=== PATIENT | female | born 1955 | race Caucasian/White ===

== ENCOUNTER 2017-06-04 17:35 | Inpatient (IN) | payer OTHER ==
[~2017-06-04] VITALS: Ht 149.9 cm; Wt 93.0 kg
[2017-06-04 18:00] VITALS: BP_SYST 112
[2017-06-04] MEDS ORDERED: KETOROLAC TROMETHAMINE 60 MG/2 ML VIAL IM ONE (18:30)
[2017-06-04] MEDS ORDERED: HYDROcodone/ACETAMIN 7.5-325 MG TAB PO ONE (21:15)
[2017-06-04 22:02] LABS: BASOPHILS % (AUTO) 0.5 % (0.0-2.0); EOSINOPHILS # (AUTO) 0.1 K/uL (0.0-0.4); EOSINOPHILS % (AUTO) 1.7 % (0.0-4.0); HEMATOCRIT 36.6 % (36-48); HEMOGLOBIN 12.4 g/dL (12.0-16.0); LYMPHOCYTES # (AUTO) 2.1 K/uL (1.0-5.5); LYMPHOCYTES % (AUTO) 28.5 % (20.5-51.5); MEAN CORPUSCULAR HEMOGLOBIN 31 pg (27-31); MEAN CORPUSCULAR HGB CONC 34 % (32-36); MEAN CORPUSCULAR VOLUME 91 fL (79.0-98.0); MONOCYTES # (AUTO) 0.9 K/uL (0.0-1.0); MONOCYTES % (AUTO) 11.9 % (1.7-9.3); NEUTROPHILS # (AUTO) 4.2 K/uL (1.8-7.7); NEUTROPHILS % (AUTO) 57.4 % (40.0-70.0); PLATELET COUNT (AUTO) 251 K/uL (130-430); RED BLOOD CELL COUNT(AUTO) 4.03 MIL/uL (4.2-6.2); RED CELL DISTRIBUTION WIDTH 13.4 % (9.0-15.0); WHITE BLOOD COUNT (AUTO) 7.3 K/uL (4.8-10.8)
[2017-06-04] MEDS ORDERED: DEXTROSE 50% JECT 50 ML DISP.SYRIN IVP PRN (22:15)
[2017-06-04] MEDS ORDERED: MORPHINE 2 MG/ML INJ. SYRINGE IVP PRN (22:15)
[2017-06-04] MEDS ORDERED: ONDANSETRON HCL 4 MG/2 ML VIAL IVP PRN (22:15)
[2017-06-04] MEDS ORDERED: MAGNESIUM SULFATE 50 ML IV PRN (22:15)
[2017-06-04] MEDS ORDERED: ZOLPIDEM TARTRATE 5 MG TABLET PO PRN (22:15)
[2017-06-04] MEDS ORDERED: POTASSIUM CHLORIDE 10 MEQ TAB.PRT.SR PO PRN (22:15)
[2017-06-04] MEDS ORDERED: DOCUSATE SODIUM 100 MG CAPSULE PO PRN (22:15)
[2017-06-04] MEDS ORDERED: ACETAMINOPHEN 325 MG TABLET PO PRN (22:15)
[2017-06-04] MEDS ORDERED: OXYC20TA55 PO (22:17)
[2017-06-04] MEDS ORDERED: LEVE250T2 PO (22:17)
[2017-06-04] MEDS ORDERED: LORA-258 PO (22:17)
[2017-06-04] MEDS ORDERED: VITA-285 PO (22:17)
[2017-06-04] MEDS ORDERED: LIP40 PO (22:17)
[2017-06-04] MEDS ORDERED: METO25TA6 PO (22:17)
[2017-06-04] MEDS ORDERED: POTA20TA83 PO (22:17)
[2017-06-04] MEDS ORDERED: RANI-281 PO (22:17)
[2017-06-04] MEDS ORDERED: LISI-600 PO (22:17)
[2017-06-04] MEDS ORDERED: METF-509 PO (22:17)
[2017-06-04] MEDS ORDERED: LACO100T2 PO (22:17)
[2017-06-04] MEDS ORDERED: FURO-150 PO (22:17)
[2017-06-04] MEDS ORDERED: OXYC5TAB84 PO (22:17)
[2017-06-04] MEDS ORDERED: GABA800T PO (22:17)
[2017-06-04] MEDS ORDERED: GABA-531 PO (22:17)
[2017-06-04] MEDS ORDERED: TICA90TA PO (22:17)
[2017-06-04 22:19] LABS: BILIRUBIN,URINE 1+ (NEGATIVE); CLARITY/URINE CLOUDY (CLEAR); COLOR,URINE YELLOW (YELLOW); GLUCOSE,URINE NEGATIVE (NEGATIVE); KETONES,URINE TRACE (NEGATIVE); LEUKOCYTE ESTERASE ,URINE 1+ (NEGATIVE); NITRITE, URINE POSITIVE (NEGATIVE); PROTEIN URINE TRACE (NEGATIVE); UROBILINOGEN,URINE 0.2 (0.2-1.0)
[2017-06-04 22:21] LABS: BLOOD, URINE TRACE (NEGATIVE)
[2017-06-04 22:42] LABS: BACTERIA,URINE MANY /HPF (None Seen); RBC,URINE NONE SEEN /HPF (0-3)
[2017-06-04 22:43] LABS: MUCUS,URINE None Seen /LPF (None Seen)
[2017-06-04 23:10] VITALS: BP_SYST 99
[2017-06-04 23:21] LABS: CALCIUM 9.1 mg/dL (8.4-11.0); CREATININE 1.02 mg/dL (0.55-1.30); POTASSIUM 4.3 mmol/L (3.5-5.1)
[2017-06-04 23:26] LABS: ALBUMIN 3.8 g/dL (3.4-4.8); TOTAL BILIRUBIN 0.4 mg/dL (0.0-1.0); TOTAL PROTEIN, SERUM 7.6 g/dL (6.4-8.3)
[2017-06-05 04:00] VITALS: BP_SYST 121
[2017-06-05] MEDS: INSULIN ASPART 100 UNITS/ML, 10 ML VIAL (NovoLOG) SUBCUT PRN ×3 (06:24→17:12)
[2017-06-05 07:23] LABS: BASOPHILS % (AUTO) 0.5 % (0.0-2.0); EOSINOPHILS # (AUTO) 0.2 K/uL (0.0-0.4); EOSINOPHILS % (AUTO) 1.9 % (0.0-4.0); HEMATOCRIT 32.4 % (36-48); HEMOGLOBIN 10.8 g/dL (12.0-16.0); LYMPHOCYTES # (AUTO) 1.3 K/uL (1.0-5.5); LYMPHOCYTES % (AUTO) 16.4 % (20.5-51.5); MEAN CORPUSCULAR HEMOGLOBIN 30 pg (27-31); MEAN CORPUSCULAR HGB CONC 33 % (32-36); MEAN CORPUSCULAR VOLUME 91 fL (79.0-98.0); MONOCYTES # (AUTO) 0.8 K/uL (0.0-1.0); MONOCYTES % (AUTO) 10.4 % (1.7-9.3); NEUTROPHILS # (AUTO) 5.8 K/uL (1.8-7.7); NEUTROPHILS % (AUTO) 70.8 % (40.0-70.0); PLATELET COUNT (AUTO) 212 K/uL (130-430); RED BLOOD CELL COUNT(AUTO) 3.55 MIL/uL (4.2-6.2); RED CELL DISTRIBUTION WIDTH 13.4 % (9.0-15.0); WHITE BLOOD COUNT (AUTO) 8.1 K/uL (4.8-10.8)
[2017-06-05 07:29] LABS: CALCIUM 8.7 mg/dL (8.4-11.0); CREATININE 1.19 mg/dL (0.55-1.30); POTASSIUM 4.3 mmol/L (3.5-5.1)
[2017-06-05 08:18] VITALS: BP_SYST 98
[2017-06-05] MEDS ORDERED: LISINOPRIL 10 MG TABLET (PRINIVIL) PO SCH (09:00)
[2017-06-05] MEDS: GABAPENTIN 300 MG CAPSULE PO SCH ×3 (09:11→21:00)
[2017-06-05] MEDS: LACOSAMIDE 100 MG TABLET PO SCH ×2 (09:11→21:00)
[2017-06-05] MEDS: levETIRAcetam 500 MG TABLET PO SCH ×2 (09:11→21:00)
[2017-06-05] MEDS: HEPARIN SODIUM,PORCINE 5000 UNITS/ML VIAL SUBCUT SCH ×2 (09:14→22:56)
[2017-06-05] MEDS: NACL 0.9% 1,000 ML IV SCH ×2 (11:19→22:00)
[2017-06-05] MEDS: cefTRIAXone 1 GM in D5W 50 ML IV SCH (11:26)
[2017-06-05 12:10] VITALS: BP_SYST 105
[2017-06-05] MEDS: oxyCODONE HCL 10 MG TAB.ER.12H PO SCH ×2 (14:17→22:00)
[2017-06-05 16:16] VITALS: BP_SYST 139
[2017-06-05] MEDS: metFORMIN HCL 500 MG TABLET PO SCH (17:11)
[2017-06-05 20:00] VITALS: BP_SYST 116
[2017-06-05] MEDS ORDERED: MENTHOL/ZINC OXIDE 113 GM OINT. TP PRN (20:30)
[2017-06-05] MEDS: MENTHOL/ZINC OXIDE 113 GM OINT. TP SCH (21:00)
[2017-06-05] MEDS ORDERED: GABAPENTIN 300 MG CAPSULE PO SCH (21:00)
[2017-06-05] MEDS: ATORVASTATIN 20 MG TABLET PO SCH (21:00)
[2017-06-05] MEDS: LORazepam 2 MG/ML VIAL IVP PRN (22:54)
[2017-06-06 00:12] VITALS: BP_SYST 103
[2017-06-06 04:00] VITALS: BP_SYST 110
[2017-06-06] MEDS: NACL 0.9% 1,000 ML IV SCH (05:00)
[2017-06-06] MEDS: oxyCODONE HCL 10 MG TAB.ER.12H PO SCH ×3 (06:00→22:16)
[2017-06-06 06:50] LABS: BASOPHILS % (AUTO) 0.4 % (0.0-2.0); EOSINOPHILS # (AUTO) 0.1 K/uL (0.0-0.4); HEMATOCRIT 31.2 % (36-48); HEMOGLOBIN 10.3 g/dL (12.0-16.0); LYMPHOCYTES # (AUTO) 1.7 K/uL (1.0-5.5); LYMPHOCYTES % (AUTO) 34.1 % (20.5-51.5); MEAN CORPUSCULAR HEMOGLOBIN 30 pg (27-31); MEAN CORPUSCULAR HGB CONC 33 % (32-36); MEAN CORPUSCULAR VOLUME 92 fL (79.0-98.0); MONOCYTES # (AUTO) 0.7 K/uL (0.0-1.0); MONOCYTES % (AUTO) 14.5 % (1.7-9.3); NEUTROPHILS # (AUTO) 2.4 K/uL (1.8-7.7); PLATELET COUNT (AUTO) 187 K/uL (130-430); RED BLOOD CELL COUNT(AUTO) 3.41 MIL/uL (4.2-6.2); RED CELL DISTRIBUTION WIDTH 13.4 % (9.0-15.0); WHITE BLOOD COUNT (AUTO) 4.9 K/uL (4.8-10.8)
[2017-06-06 06:53] LABS: CALCIUM 8.3 mg/dL (8.4-11.0); CREATININE 0.83 mg/dL (0.55-1.30); POTASSIUM 4.3 mmol/L (3.5-5.1)
[2017-06-06 08:26] VITALS: BP_SYST 127
[2017-06-06] MEDS: MENTHOL/ZINC OXIDE 113 GM OINT. TP SCH ×4 (09:00→20:50)
[2017-06-06] MEDS: cefTRIAXone 1 GM in D5W 50 ML IV SCH (09:10)
[2017-06-06] MEDS: LACOSAMIDE 100 MG TABLET PO SCH ×2 (09:49→20:49)
[2017-06-06] MEDS: levETIRAcetam 500 MG TABLET PO SCH ×2 (09:49→20:50)
[2017-06-06] MEDS: metFORMIN HCL 500 MG TABLET PO SCH ×2 (09:50→18:11)
[2017-06-06] MEDS: GABAPENTIN 300 MG CAPSULE PO SCH ×3 (09:50→20:49)
[2017-06-06] MEDS: POTASSIUM CHLORIDE 20 MEQ TAB.PRT.SR PO SCH (09:51)
[2017-06-06] MEDS: HEPARIN SODIUM,PORCINE 5000 UNITS/ML VIAL SUBCUT SCH ×2 (09:53→20:48)
[2017-06-06] MEDS: FUROSEMIDE 20 MG TABLET PO SCH (09:54)
[2017-06-06] MEDS: LORazepam 2 MG/ML VIAL IVP PRN ×2 (10:28→20:59)
[2017-06-06] MEDS: INSULIN ASPART 100 UNITS/ML, 10 ML VIAL (NovoLOG) SUBCUT PRN ×2 (12:16→21:01)
[2017-06-06 12:50] VITALS: BP_SYST 118
[2017-06-06 17:37] VITALS: BP_SYST 131; BP_SYST 135
[2017-06-06 19:30] VITALS: BP_SYST 108
[2017-06-06] MEDS: ATORVASTATIN 20 MG TABLET PO SCH (20:49)
[2017-06-06] MEDS ORDERED: CITALOPRAM HYDROBROMIDE 20 MG TABLET PO SCH (21:00)
[2017-06-06] MEDS ORDERED: ESCITALOPRAM OXALATE 10 MG TABLET PO SCH (21:00)
[2017-06-07] VITALS: BP_SYST 120
[2017-06-07 04:00] VITALS: BP_SYST 128
[2017-06-07] MEDS: oxyCODONE HCL 10 MG TAB.ER.12H PO SCH ×2 (06:52→14:38)
[2017-06-07 07:18] LABS: BASOPHILS % (AUTO) 0.6 % (0.0-2.0); EOSINOPHILS # (AUTO) 0.2 K/uL (0.0-0.4); EOSINOPHILS % (AUTO) 2.2 % (0.0-4.0); HEMATOCRIT 34.3 % (36-48); HEMOGLOBIN 11.6 g/dL (12.0-16.0); LYMPHOCYTES # (AUTO) 1.9 K/uL (1.0-5.5); LYMPHOCYTES % (AUTO) 22.8 % (20.5-51.5); MEAN CORPUSCULAR HEMOGLOBIN 31 pg (27-31); MEAN CORPUSCULAR HGB CONC 34 % (32-36); MEAN CORPUSCULAR VOLUME 92 fL (79.0-98.0); MONOCYTES # (AUTO) 0.8 K/uL (0.0-1.0); MONOCYTES % (AUTO) 10.1 % (1.7-9.3); NEUTROPHILS # (AUTO) 5.2 K/uL (1.8-7.7); NEUTROPHILS % (AUTO) 64.3 % (40.0-70.0); PLATELET COUNT (AUTO) 220 K/uL (130-430); RED BLOOD CELL COUNT(AUTO) 3.72 MIL/uL (4.2-6.2); RED CELL DISTRIBUTION WIDTH 13.5 % (9.0-15.0); WHITE BLOOD COUNT (AUTO) 8.1 K/uL (4.8-10.8)
[2017-06-07 07:44] LABS: CALCIUM 8.8 mg/dL (8.4-11.0); CREATININE 0.83 mg/dL (0.55-1.30); POTASSIUM 4.7 mmol/L (3.5-5.1)
[2017-06-07 08:09] VITALS: BP_SYST 135
[2017-06-07] MEDS: GABAPENTIN 300 MG CAPSULE PO SCH ×2 (08:58→14:38)
[2017-06-07] MEDS: metFORMIN HCL 500 MG TABLET PO SCH ×2 (08:58→17:51)
[2017-06-07] MEDS: POTASSIUM CHLORIDE 20 MEQ TAB.PRT.SR PO SCH (08:59)
[2017-06-07] MEDS: levETIRAcetam 500 MG TABLET PO SCH (08:59)
[2017-06-07] MEDS: FUROSEMIDE 20 MG TABLET PO SCH (08:59)
[2017-06-07] MEDS: LACOSAMIDE 100 MG TABLET PO SCH (08:59)
[2017-06-07] MEDS: NACL 0.9% 1,000 ML IV SCH ×2 (09:00→11:52)
[2017-06-07] MEDS: HEPARIN SODIUM,PORCINE 5000 UNITS/ML VIAL SUBCUT SCH (09:03)
[2017-06-07] MEDS: MENTHOL/ZINC OXIDE 113 GM OINT. TP SCH ×3 (09:04→17:51)
[2017-06-07] MEDS: LORazepam 2 MG/ML VIAL IVP PRN ×2 (09:04→14:40)
[2017-06-07] MEDS: cefTRIAXone 1 GM in D5W 50 ML IV SCH (09:44)
[2017-06-07] MEDS: INSULIN ASPART 100 UNITS/ML, 10 ML VIAL (NovoLOG) SUBCUT PRN (11:55)
[2017-06-07 12:43] VITALS: BP_SYST 131
[2017-06-07 16:27] VITALS: BP_SYST 109
[2017-06-07 17:19] VITALS: BP_SYST 109
== END 2017-06-07 18:00 | DRG 690 ==
LOC: SED 17:35 → SMU 22:38
PROVIDERS: ADMIT General Practice; ATTEND General Practice
DX: N39.0 Urinary tract infection, site not specified (principal); F33.2 Major depressive disorder, recurrent severe without psychotic features; Z68.41 Body mass index [BMI] 40.0-44.9, adult; I69.354 Hemiplegia and hemiparesis following cerebral infarction affecting left non-dominant side; E66.9 Obesity, unspecified; E78.5 Hyperlipidemia, unspecified; I25.10 Atherosclerotic heart disease of native coronary artery without angina pectoris; E11.40 Type 2 diabetes mellitus with diabetic neuropathy, unspecified; E11.65 Type 2 diabetes mellitus with hyperglycemia; F41.9 Anxiety disorder, unspecified; F48.2 Pseudobulbar affect; G40.909 Epilepsy, unspecified, not intractable, without status epilepticus; I10 Essential (primary) hypertension; W19.XXXA Unspecified fall, initial encounter; Y93.89 Activity, other specified; Y92.89 Other specified places as the place of occurrence of the external cause; Y99.8 Other external cause status; Z79.84 Long term (current) use of oral hypoglycemic drugs
CPT/HCPCS: 36415; 71010; 72128; 80048; 80053; 81000-TC; 82962; 83036; 83735-TC; 85025; 87086; 87186-TC; 96372; 97530-GP; 99285; J0696; J1644; J1815; J1885; J2060; J2270; J7030; J7060

== ENCOUNTER 2017-08-23 03:11 | Inpatient (IN) | payer OTHER, MEDICAID ==
[~2017-08-23] VITALS: Ht 149.9 cm; Wt 83.9 kg
[2017-08-23 03:11] VITALS: BP_SYST 192
[~2017-08-23 03:11] MED LIST: FURO-150 PO; GABA-531 PO; GABA800T PO; LACO100T2 PO; LEVE250T2 PO; LIP40 PO; LISI-600 PO; LORA-258 PO; METF-509 PO; METO25TA6 PO; OXYC20TA55 PO; OXYC5TAB84 PO; POTA20TA83 PO; TICA90TA PO; VITA-285 PO
[2017-08-23] MEDS ORDERED: NACL 0.9% 1,000 ML IV ONE ×2 (03:23→04:15)
[2017-08-23] MEDS ORDERED: ONDANSETRON HCL 4 MG/2 ML VIAL IVP ONE (03:30)
[2017-08-23] MEDS ORDERED: INSULIN REGULAR, HUMAN 10 UNITS/0.1 ML INJ IVP ONE (03:30)
[2017-08-23 03:53] LABS: WHITE BLOOD COUNT (AUTO) 13.3 K/uL (4.8-10.8)
[2017-08-23 03:54] LABS: BASOPHILS % (AUTO) 3.3 % (0.0-2.0); EOSINOPHILS % (AUTO) 0.1 % (0.0-4.0); HEMATOCRIT 47.3 % (36-48); HEMOGLOBIN 16.1 g/dL (12.0-16.0); LYMPHOCYTES # (AUTO) 1.1 K/uL (1.0-5.5); MEAN CORPUSCULAR HEMOGLOBIN 30 pg (27-31); MEAN CORPUSCULAR HGB CONC 34 % (32-36); MEAN CORPUSCULAR VOLUME 87 fL (79.0-98.0); MONOCYTES % (AUTO) 3.1 % (1.7-9.3); NEUTROPHILS # (AUTO) 11.4 K/uL (1.8-7.7); NEUTROPHILS % (AUTO) 85.5 % (40.0-70.0); PLATELET COUNT (AUTO) 266 K/uL (130-430); RED BLOOD CELL COUNT(AUTO) 5.42 MIL/uL (4.2-6.2); RED CELL DISTRIBUTION WIDTH 12.7 % (9.0-15.0)
[2017-08-23 03:55] LABS: BASOPHILS # (AUTO) 0.4 K/uL (0.0-0.2); MONOCYTES # (AUTO) 0.4 K/uL (0.0-1.0)
[2017-08-23 03:59] LABS: CALCIUM 10.5 mg/dL (8.4-11.0); CREATININE 0.84 mg/dL (0.55-1.30); POTASSIUM 3.8 mmol/L (3.5-5.1)
[2017-08-23 04:00] LABS: INR 1.1 (0.8-1.2)
[2017-08-23] MEDS ORDERED: MORPHINE 4 MG/ML INJ. SYRINGE IVP ONE ×2 (04:00→06:00)
[2017-08-23 04:05] LABS: ALBUMIN 4.6 g/dL (3.4-4.8); TOTAL BILIRUBIN 0.7 mg/dL (0.0-1.0)
[2017-08-23 04:22] LABS: BILIRUBIN,URINE NEGATIVE (NEGATIVE); BLOOD, URINE 1+ (NEGATIVE); CLARITY/URINE CLEAR (CLEAR); COLOR,URINE YELLOW (YELLOW); GLUCOSE,URINE 3+ (NEGATIVE); KETONES,URINE 3+ (NEGATIVE); LEUKOCYTE ESTERASE ,URINE NEGATIVE (NEGATIVE); NITRITE, URINE NEGATIVE (NEGATIVE); PROTEIN URINE 3+ (NEGATIVE); UROBILINOGEN,URINE 0.2 (0.2-1.0)
[2017-08-23 04:27] LABS: BACTERIA,URINE FEW /HPF (None Seen); URINE AMORPHOUS URATE 1+ /HPF (None Seen); WBC,URINE 0-3 /HPF (0-3); YEAST,URINE Few /HPF (None Seen)
[2017-08-23] MEDS ORDERED: IOHEXOL 100 ML IV ONE (04:29)
[2017-08-23] MEDS ORDERED: MULT PO (05:02)
[2017-08-23] MEDS ORDERED: LORA-258 PO (05:02)
[2017-08-23] MEDS ORDERED: OMEP20CA10 PO (05:02)
[2017-08-23] MEDS ORDERED: HYDR-1189 PO (05:02)
[2017-08-23] MEDS ORDERED: CEL20 PO (05:02)
[2017-08-23] MEDS ORDERED: ASCO500T20 PO (05:02)
[2017-08-23] MEDS ORDERED: HEPA500014 SUBCUT (05:02)
[2017-08-23] MEDS ORDERED: MECL12.584 PO (05:02)
[2017-08-23] MEDS ORDERED: niCARdipine 25 MG in D5W 240 ML IV PRN (05:45)
[2017-08-23] MEDS ORDERED: INSULIN REGULAR, HUMAN 100 UNITS/ML, 10 ML VIAL (novoLIN R) SUBCUT PRN (05:45)
[2017-08-23] MEDS ORDERED: hydrALAZINE HCL 20 MG/ML VIAL IVP PRN (05:45)
[2017-08-23] MEDS ORDERED: niCARdipine 2.5 MG/ML, 10 ML VIAL (CARDENE) IV ONE (05:55)
[2017-08-23] MEDS ORDERED: NACL 0.9% 1,000 ML IV SCH (06:00)
[2017-08-23 06:32] VITALS: BP_SYST 175
[2017-08-23 08:15] VITALS: BP_SYST 174
[2017-08-23] MEDS: hydrALAZINE HCL 20 MG/ML VIAL ONE ×2 (08:24→10:41)
[2017-08-23] MEDS ORDERED: DEXTROSE 50% JECT 50 ML DISP.SYRIN IVP PRN (08:30)
[2017-08-23 09:17] LABS: CREATININE 0.73 mg/dL (0.55-1.30); POTASSIUM 3.6 mmol/L (3.5-5.1)
[2017-08-23] MEDS ORDERED: BISACODYL 10 MG/SUPPOSITORY RC PRN (10:15)
[2017-08-23] MEDS ORDERED: POTASSIUM CHLORIDE 20 MEQ TAB.PRT.SR PO PRN (10:15)
[2017-08-23] MEDS ORDERED: ZOLPIDEM TARTRATE 5 MG TABLET PO PRN (10:15)
[2017-08-23] MEDS ORDERED: SIMETHICONE 80 MG TAB.CHEW PO PRN (10:15)
[2017-08-23] MEDS ORDERED: ACETAMINOPHEN 325 MG TABLET PO PRN (10:15)
[2017-08-23] MEDS ORDERED: oxyCODONE HCL 5 MG TABLET PO PRN (10:15)
[2017-08-23] MEDS: INSULIN REGULAR, HUMAN 100 UNITS/ML, 10 ML VIAL (novoLIN R) SUBCUT PRN ×3 (10:55→22:05)
[2017-08-23] MEDS: NACL 0.9% 1,000 ML IV SCH (10:56)
[2017-08-23] MEDS ORDERED: METOPROLOL TARTRATE 25 MG TABLET ONE (10:56)
[2017-08-23] MEDS: MORPHINE 2 MG/ML INJ. SYRINGE IVP PRN (10:57)
[2017-08-23] MEDS: LORazepam 2 MG/ML VIAL IVP PRN (10:57)
[2017-08-23] MEDS ORDERED: METOPROLOL TARTRATE 25 MG TABLET PO ONE (11:00)
[2017-08-23] MEDS ORDERED: MILK OF MAGNESIA 30 ML UDC PO ONE (11:00)
[2017-08-23] MEDS ORDERED: LISINOPRIL 20 MG TABLET PO ONE (11:00)
[2017-08-23] MEDS ORDERED: MILK OF MAGNESIA 30 ML UDC PO PRN (11:00)
[2017-08-23] MEDS: METOPROLOL TARTRATE 25 MG TABLET PO SCH ×2 (11:01→22:03)
[2017-08-23] MEDS: LISINOPRIL 20 MG TABLET PO SCH (11:02)
[2017-08-23 11:26] LABS: FREE T4 (FREE THYROXINE) 0.8 ng/dL (0.6-1.6); PHOSPHORUS 2.7 mg/dL (2.7-4.5); THYROID STIMULATING HORMONE 0.75 uIu/mL (0.34-4.82)
[2017-08-23 11:52] VITALS: BP_SYST 151
[2017-08-23] MEDS: FLUCONAZOLE 100 mg/ NS 50 ML IV SCH (11:56)
[2017-08-23] MEDS: cefTRIAXone 1 GM in D5W 50 ML IV SCH (13:01)
[2017-08-23] MEDS: oxyCODONE HCL 10 MG TAB.ER.12H PO SCH ×2 (16:27→22:02)
[2017-08-23] MEDS: LACTULOSE 20 GM/30 ML UDC PO SCH ×2 (16:28→22:02)
[2017-08-23 16:51] VITALS: BP_SYST 153
[2017-08-23] MEDS: CITALOPRAM HYDROBROMIDE 20 MG TABLET PO SCH (18:12)
[2017-08-23 20:00] VITALS: BP_SYST 138
[2017-08-23] MEDS ORDERED: NON-FORMULARY MEDICATION (Metformin Hcl (Metformin Hcl Er) 500 MG) PO SCH (21:00)
[2017-08-23] MEDS: HEPARIN SODIUM,PORCINE 5000 UNITS/ML VIAL SUBCUT SCH (22:01)
[2017-08-23] MEDS: GABAPENTIN 300 MG CAPSULE PO SCH (22:02)
[2017-08-23] MEDS: ATORVASTATIN 20 MG TABLET PO SCH (22:02)
[2017-08-23] MEDS: DOCUSATE SODIUM 100 MG CAPSULE PO SCH (22:02)
[2017-08-23] MEDS: levETIRAcetam 500 MG TABLET PO SCH (22:02)
[2017-08-23] MEDS: LACOSAMIDE 100 MG TABLET PO SCH (22:03)
[2017-08-24 01:05] VITALS: BP_SYST 131
[2017-08-24 04:48] VITALS: BP_SYST 108
[2017-08-24] MEDS: INSULIN REGULAR, HUMAN 100 UNITS/ML, 10 ML VIAL (novoLIN R) SUBCUT PRN ×4 (06:33→22:29)
[2017-08-24] MEDS: NACL 0.9% 1,000 ML IV SCH (06:35)
[2017-08-24] MEDS ORDERED: MAGNESIUM CITRATE 300 ML ORAL SOLUTION PO ONE (07:00)
[2017-08-24 07:14] LABS: BASOPHILS # (AUTO) 0.1 K/uL (0.0-0.2); BASOPHILS % (AUTO) 0.4 % (0.0-2.0); EOSINOPHILS % (AUTO) 0.1 % (0.0-4.0); HEMATOCRIT 44.1 % (36-48); HEMOGLOBIN 14.3 g/dL (12.0-16.0); LYMPHOCYTES # (AUTO) 1.8 K/uL (1.0-5.5); LYMPHOCYTES % (AUTO) 11.4 % (20.5-51.5); MEAN CORPUSCULAR HEMOGLOBIN 29 pg (27-31); MEAN CORPUSCULAR HGB CONC 33 % (32-36); MEAN CORPUSCULAR VOLUME 88 fL (79.0-98.0); MONOCYTES # (AUTO) 1.9 K/uL (0.0-1.0); MONOCYTES % (AUTO) 11.9 % (1.7-9.3); NEUTROPHILS # (AUTO) 11.8 K/uL (1.8-7.7); NEUTROPHILS % (AUTO) 76.2 % (40.0-70.0); PLATELET COUNT (AUTO) 363 K/uL (130-430); RED BLOOD CELL COUNT(AUTO) 4.99 MIL/uL (4.2-6.2); RED CELL DISTRIBUTION WIDTH 13.1 % (9.0-15.0); WHITE BLOOD COUNT (AUTO) 15.6 K/uL (4.8-10.8)
[2017-08-24 07:36] LABS: CALCIUM 9.5 mg/dL (8.4-11.0); CREATININE 1.28 mg/dL (0.55-1.30); POTASSIUM 3.3 mmol/L (3.5-5.1)
[2017-08-24 08:00] VITALS: BP_SYST 145
[2017-08-24] MEDS: ASCORBIC ACID 500 MG TABLET PO SCH (08:52)
[2017-08-24] MEDS: DOCUSATE SODIUM 100 MG CAPSULE PO SCH ×2 (08:52→22:10)
[2017-08-24] MEDS: levETIRAcetam 500 MG TABLET PO SCH ×2 (08:52→22:09)
[2017-08-24] MEDS: LACTULOSE 20 GM/30 ML UDC PO SCH ×3 (08:52→22:10)
[2017-08-24] MEDS: LISINOPRIL 20 MG TABLET PO SCH (08:53)
[2017-08-24] MEDS: LACOSAMIDE 100 MG TABLET PO SCH ×2 (08:53→22:15)
[2017-08-24] MEDS: POTASSIUM CHLORIDE 20 MEQ TAB.PRT.SR PO SCH (08:53)
[2017-08-24] MEDS: MULTIVITAMINS TAB 1 TABLET PO SCH (08:54)
[2017-08-24] MEDS: OMEPRAZOLE 20 MG CAPSULE.DR (PriLOSEC) PO SCH (08:54)
[2017-08-24] MEDS: FUROSEMIDE 20 MG TABLET PO SCH (08:54)
[2017-08-24] MEDS: oxyCODONE HCL 10 MG TAB.ER.12H PO SCH ×3 (08:55→21:00)
[2017-08-24] MEDS: METOPROLOL TARTRATE 25 MG TABLET PO SCH ×2 (08:56→21:00)
[2017-08-24] MEDS: HEPARIN SODIUM,PORCINE 5000 UNITS/ML VIAL SUBCUT SCH ×2 (08:57→22:26)
[2017-08-24] MEDS ORDERED: NA PHOS,M-B/NA PHOS,DI-BA 118 ML (FLEET ENEMA) RC ONE (09:00)
[2017-08-24] MEDS ORDERED: LISINOPRIL 20 MG TABLET PO SCH (09:00)
[2017-08-24] MEDS ORDERED: NON-FORMULARY MEDICATION (Ticagrelor (Brilinta) 90 MG) PO SCH (09:00)
[2017-08-24] MEDS: ONDANSETRON HCL 4 MG/2 ML VIAL IVP PRN (09:04)
[2017-08-24 10:15] LABS: T4 (THYROXINE) 9.1 ug/dL (4.5-12.0)
[2017-08-24] MEDS: cefTRIAXone 1 GM in D5W 50 ML IV SCH (10:37)
[2017-08-24] MEDS: FLUCONAZOLE 100 mg/ NS 50 ML IV SCH (11:16)
[2017-08-24 12:54] VITALS: BP_SYST 106
[2017-08-24] MEDS ORDERED: hydrALAZINE HCL 20 MG/ML VIAL IVP PRN (15:30)
[2017-08-24] MEDS: LORazepam 2 MG/ML VIAL IVP PRN (16:00)
[2017-08-24 16:16] VITALS: BP_SYST 100
[2017-08-24 16:24] LABS: BILIRUBIN,URINE NEGATIVE (NEGATIVE); BLOOD, URINE NEGATIVE (NEGATIVE); CLARITY/URINE HAZY (CLEAR); COLOR,URINE YELLOW (YELLOW); GLUCOSE,URINE 2+ (NEGATIVE); KETONES,URINE NEGATIVE (NEGATIVE); LEUKOCYTE ESTERASE ,URINE NEGATIVE (NEGATIVE); NITRITE, URINE NEGATIVE (NEGATIVE); PROTEIN URINE 1+ (NEGATIVE); UROBILINOGEN,URINE 0.2 (0.2-1.0)
[2017-08-24 16:26] LABS: BACTERIA,URINE FEW /HPF (None Seen); FINE GRANULAR CASTS,URINE 0-10 /LPF (None Seen); HYALINE CASTS, URINE 0-10 /LPF (None Seen); MUCUS,URINE None Seen /LPF (None Seen); RBC,URINE NONE SEEN /HPF (0-3); WBC,URINE 0-3 /HPF (0-3)
[2017-08-24] MEDS: CITALOPRAM HYDROBROMIDE 20 MG TABLET PO SCH (17:12)
[2017-08-24 20:00] VITALS: BP_SYST 140; BP_SYST 90
[2017-08-24] MEDS: ATORVASTATIN 20 MG TABLET PO SCH (22:09)
[2017-08-24] MEDS: GABAPENTIN 300 MG CAPSULE PO SCH (22:09)
[2017-08-25] VITALS (7 sets, daily range): BP systolic 98–141
[2017-08-25] MEDS: NACL 0.9% 1,000 ML IV SCH ×3 (05:09→16:59)
[2017-08-25] MEDS ORDERED: NA PHOS,M-B/NA PHOS,DI-BA 118 ML (FLEET ENEMA) RC ONE (06:15)
[2017-08-25] MEDS: INSULIN REGULAR, HUMAN 100 UNITS/ML, 10 ML VIAL (novoLIN R) SUBCUT PRN ×4 (06:29→22:43)
[2017-08-25 06:40] LABS: BASOPHILS # (AUTO) 0.1 K/uL (0.0-0.2); BASOPHILS % (AUTO) 0.7 % (0.0-2.0); EOSINOPHILS # (AUTO) 0.1 K/uL (0.0-0.4); EOSINOPHILS % (AUTO) 0.4 % (0.0-4.0); HEMATOCRIT 46.2 % (36-48); LYMPHOCYTES % (AUTO) 12.6 % (20.5-51.5); MEAN CORPUSCULAR HEMOGLOBIN 29 pg (27-31); MEAN CORPUSCULAR HGB CONC 32 % (32-36); MEAN CORPUSCULAR VOLUME 89 fL (79.0-98.0); MONOCYTES # (AUTO) 2.3 K/uL (0.0-1.0); MONOCYTES % (AUTO) 14.3 % (1.7-9.3); NEUTROPHILS # (AUTO) 11.4 K/uL (1.8-7.7); PLATELET COUNT (AUTO) 291 K/uL (130-430); RED BLOOD CELL COUNT(AUTO) 5.22 MIL/uL (4.2-6.2); RED CELL DISTRIBUTION WIDTH 13.2 % (9.0-15.0); WHITE BLOOD COUNT (AUTO) 15.9 K/uL (4.8-10.8)
[2017-08-25] MEDS: MAGNESIUM CITRATE 300 ML ORAL SOLUTION PO SCH ×2 (09:00→09:21)
[2017-08-25] MEDS: TICAGRELOR PO SCH (09:00)
[2017-08-25] MEDS: [UNRECOGNIZED DRUG - OTHER] PO SCH (09:00)
[2017-08-25 09:05] LABS: CALCIUM 9.9 mg/dL (8.4-11.0); CREATININE 1.43 mg/dL (0.55-1.30)
[2017-08-25] MEDS: DOCUSATE SODIUM 100 MG CAPSULE PO SCH ×2 (09:17→22:29)
[2017-08-25] MEDS: POTASSIUM CHLORIDE 20 MEQ TAB.PRT.SR PO SCH (09:18)
[2017-08-25] MEDS: oxyCODONE HCL 10 MG TAB.ER.12H PO SCH ×3 (09:18→22:33)
[2017-08-25] MEDS: OMEPRAZOLE 20 MG CAPSULE.DR (PriLOSEC) PO SCH (09:18)
[2017-08-25] MEDS: FUROSEMIDE 20 MG TABLET PO SCH (09:19)
[2017-08-25] MEDS: METOPROLOL TARTRATE 25 MG TABLET PO SCH ×2 (09:20→22:31)
[2017-08-25] MEDS: MULTIVITAMINS TAB 1 TABLET PO SCH (09:20)
[2017-08-25] MEDS: ASCORBIC ACID 500 MG TABLET PO SCH (09:20)
[2017-08-25] MEDS: LACOSAMIDE 100 MG TABLET PO SCH ×2 (09:20→22:43)
[2017-08-25] MEDS: LISINOPRIL 20 MG TABLET PO SCH (09:20)
[2017-08-25] MEDS: levETIRAcetam 500 MG TABLET PO SCH ×2 (09:21→22:29)
[2017-08-25] MEDS: LACTULOSE 20 GM/30 ML UDC PO SCH ×3 (09:21→22:29)
[2017-08-25] MEDS: HEPARIN SODIUM,PORCINE 5000 UNITS/ML VIAL SUBCUT SCH ×2 (09:22→22:41)
[2017-08-25] MEDS: cefTRIAXone 1 GM in D5W 50 ML IV SCH (10:11)
[2017-08-25] MEDS: FLUCONAZOLE 100 mg/ NS 50 ML IV SCH (11:01)
[2017-08-25] MEDS: CITALOPRAM HYDROBROMIDE 20 MG TABLET PO SCH (16:50)
[2017-08-25] MEDS: GABAPENTIN 300 MG CAPSULE PO SCH (22:29)
[2017-08-25] MEDS: ATORVASTATIN 20 MG TABLET PO SCH (22:32)
[2017-08-26 00:19] VITALS: BP_SYST 111
[2017-08-26 04:09] VITALS: BP_SYST 116
[2017-08-26] MEDS: NACL 0.9% 1,000 ML IV SCH ×2 (05:57→15:09)
[2017-08-26] MEDS: INSULIN REGULAR, HUMAN 100 UNITS/ML, 10 ML VIAL (novoLIN R) SUBCUT PRN ×3 (06:07→16:42)
[2017-08-26 06:54] LABS: CALCIUM 9.2 mg/dL (8.4-11.0); CREATININE 0.67 mg/dL (0.55-1.30)
[2017-08-26 07:18] LABS: BASOPHILS # (AUTO) 0.1 K/uL (0.0-0.2); BASOPHILS % (AUTO) 0.5 % (0.0-2.0); EOSINOPHILS # (AUTO) 0.1 K/uL (0.0-0.4); EOSINOPHILS % (AUTO) 0.9 % (0.0-4.0); HEMATOCRIT 41.5 % (36-48); HEMOGLOBIN 13.6 g/dL (12.0-16.0); LYMPHOCYTES % (AUTO) 16.9 % (20.5-51.5); MEAN CORPUSCULAR HEMOGLOBIN 29 pg (27-31); MEAN CORPUSCULAR HGB CONC 33 % (32-36); MEAN CORPUSCULAR VOLUME 89 fL (79.0-98.0); MONOCYTES # (AUTO) 1.3 K/uL (0.0-1.0); MONOCYTES % (AUTO) 10.9 % (1.7-9.3); NEUTROPHILS # (AUTO) 8.2 K/uL (1.8-7.7); NEUTROPHILS % (AUTO) 70.8 % (40.0-70.0); PLATELET COUNT (AUTO) 264 K/uL (130-430); RED BLOOD CELL COUNT(AUTO) 4.69 MIL/uL (4.2-6.2); RED CELL DISTRIBUTION WIDTH 12.7 % (9.0-15.0); WHITE BLOOD COUNT (AUTO) 11.7 K/uL (4.8-10.8)
[2017-08-26] MEDS: LACOSAMIDE 100 MG TABLET PO SCH ×3 (09:00→22:01)
[2017-08-26] MEDS: OMEPRAZOLE 20 MG CAPSULE.DR (PriLOSEC) PO SCH ×2 (09:00→09:30)
[2017-08-26] MEDS: LISINOPRIL 20 MG TABLET PO SCH ×2 (09:00→09:32)
[2017-08-26] MEDS: [UNRECOGNIZED DRUG - OTHER] PO SCH (09:00)
[2017-08-26] MEDS: MAGNESIUM CITRATE 300 ML ORAL SOLUTION PO SCH ×2 (09:00→09:28)
[2017-08-26] MEDS: TICAGRELOR PO SCH (09:00)
[2017-08-26] MEDS: levETIRAcetam 500 MG TABLET PO SCH ×2 (09:00→09:31)
[2017-08-26] MEDS: METOPROLOL TARTRATE 25 MG TABLET PO SCH ×3 (09:00→22:02)
[2017-08-26] MEDS: MULTIVITAMINS TAB 1 TABLET PO SCH ×2 (09:00→09:31)
[2017-08-26] MEDS: LACTULOSE 20 GM/30 ML UDC PO SCH ×4 (09:29→22:30)
[2017-08-26] MEDS: HEPARIN SODIUM,PORCINE 5000 UNITS/ML VIAL SUBCUT SCH ×2 (09:30→22:07)
[2017-08-26] MEDS: cefTRIAXone 1 GM in D5W 50 ML IV SCH (09:30)
[2017-08-26] MEDS: oxyCODONE HCL 10 MG TAB.ER.12H PO SCH ×3 (09:31→22:01)
[2017-08-26] MEDS: POTASSIUM CHLORIDE 20 MEQ TAB.PRT.SR PO SCH (09:31)
[2017-08-26] MEDS: FUROSEMIDE 20 MG TABLET PO SCH (09:31)
[2017-08-26] MEDS: DOCUSATE SODIUM 100 MG CAPSULE PO SCH ×2 (09:32→22:14)
[2017-08-26] MEDS: ASCORBIC ACID 500 MG TABLET PO SCH (09:32)
[2017-08-26] MEDS: FLUCONAZOLE 100 mg/ NS 50 ML IV SCH (10:14)
[2017-08-26] MEDS: MORPHINE 2 MG/ML INJ. SYRINGE IVP PRN (10:29)
[2017-08-26] MEDS: ONDANSETRON HCL 4 MG/2 ML VIAL IVP PRN (10:29)
[2017-08-26] MEDS ORDERED: levETIRAcetam 250 MG in NS 100 ML IV ONE (10:30)
[2017-08-26] MEDS ORDERED: METOPROLOL TARTRATE 5 MG/5 ML VIAL IVP PRN (10:30)
[2017-08-26] MEDS ORDERED: MORPHINE 2 MG/ML INJ. SYRINGE IVP PRN (10:45)
[2017-08-26] MEDS: METOCLOPRAMIDE HCL 10 MG/2 ML VIAL IVP SCH ×2 (11:14→18:17)
[2017-08-26 11:28] VITALS: BP_SYST 184
[2017-08-26 15:45] VITALS: BP_SYST 179
[2017-08-26] MEDS ORDERED: HYDROmorphone 2 MG/ML VIAL ONE (17:18)
[2017-08-26] MEDS: CITALOPRAM HYDROBROMIDE 20 MG TABLET PO SCH (17:36)
[2017-08-26 20:10] VITALS: BP_SYST 109
[2017-08-26 20:35] VITALS: BP_SYST 117
[2017-08-26] MEDS: GABAPENTIN 300 MG CAPSULE PO SCH (22:01)
[2017-08-26] MEDS: ATORVASTATIN 20 MG TABLET PO SCH (22:11)
[2017-08-26] MEDS: levETIRAcetam 250 MG in NS 100 ML IV SCH (22:17)
[2017-08-27] MEDS: NACL 0.9% 1,000 ML IV SCH ×3 (00:46→22:04)
[2017-08-27 01:04] VITALS: BP_SYST 94
[2017-08-27] MEDS: METOCLOPRAMIDE HCL 10 MG/2 ML VIAL IVP SCH ×3 (03:01→17:49)
[2017-08-27 04:00] VITALS: BP_SYST 106
[2017-08-27] MEDS: [UNRECOGNIZED DRUG - OTHER] PO SCH (09:00)
[2017-08-27] MEDS: TICAGRELOR PO SCH (09:00)
[2017-08-27] MEDS: MAGNESIUM CITRATE 300 ML ORAL SOLUTION PO SCH (09:00)
[2017-08-27 09:03] VITALS: BP_SYST 138
[2017-08-27] MEDS: levETIRAcetam 250 MG in NS 100 ML IV SCH ×2 (09:57→21:56)
[2017-08-27] MEDS: LACTULOSE 20 GM/30 ML UDC PO SCH ×3 (09:58→20:41)
[2017-08-27] MEDS: oxyCODONE HCL 10 MG TAB.ER.12H PO SCH ×3 (10:00→20:40)
[2017-08-27] MEDS: FUROSEMIDE 20 MG TABLET PO SCH (10:04)
[2017-08-27] MEDS: METOPROLOL TARTRATE 25 MG TABLET PO SCH ×2 (10:05→20:41)
[2017-08-27] MEDS: POTASSIUM CHLORIDE 20 MEQ TAB.PRT.SR PO SCH (10:05)
[2017-08-27] MEDS: LACOSAMIDE 100 MG TABLET PO SCH ×2 (10:06→20:42)
[2017-08-27] MEDS: OMEPRAZOLE 20 MG CAPSULE.DR (PriLOSEC) PO SCH (10:07)
[2017-08-27] MEDS: DOCUSATE SODIUM 100 MG CAPSULE PO SCH ×2 (10:07→20:40)
[2017-08-27] MEDS: LISINOPRIL 20 MG TABLET PO SCH (10:08)
[2017-08-27] MEDS: ASCORBIC ACID 500 MG TABLET PO SCH (10:09)
[2017-08-27] MEDS: MULTIVITAMINS TAB 1 TABLET PO SCH (10:09)
[2017-08-27] MEDS: HEPARIN SODIUM,PORCINE 5000 UNITS/ML VIAL SUBCUT SCH ×2 (10:12→21:55)
[2017-08-27] MEDS: cefTRIAXone 1 GM in D5W 50 ML IV SCH (10:52)
[2017-08-27] MEDS: FLUCONAZOLE 100 mg/ NS 50 ML IV SCH (11:36)
[2017-08-27 11:53] VITALS: BP_SYST 122
[2017-08-27] MEDS: INSULIN REGULAR, HUMAN 100 UNITS/ML, 10 ML VIAL (novoLIN R) SUBCUT PRN (12:06)
[2017-08-27] MEDS ORDERED: GOLYTELY / COLYTE SOLUTION 4 LITERS PO ONE (14:30)
[2017-08-27] MEDS ORDERED: NA PHOS,M-B/NA PHOS,DI-BA 118 ML (FLEET ENEMA) RC ONE (14:30)
[2017-08-27 16:08] VITALS: BP_SYST 123
[2017-08-27] MEDS: CITALOPRAM HYDROBROMIDE 20 MG TABLET PO SCH (17:47)
[2017-08-27] MEDS: HYDROmorphone 2 MG/ML VIAL IVP PRN ×2 (18:48→23:25)
[2017-08-27] MEDS: ATORVASTATIN 20 MG TABLET PO SCH (20:40)
[2017-08-27] MEDS: GABAPENTIN 300 MG CAPSULE PO SCH (20:40)
[2017-08-27 23:46] VITALS: BP_SYST 128
[2017-08-28 00:21] VITALS: BP_SYST 126
[2017-08-28 05:32] VITALS: BP_SYST 106
[2017-08-28] MEDS: METOCLOPRAMIDE HCL 10 MG/2 ML VIAL IVP SCH ×3 (05:33→11:15)
[2017-08-28 07:06] LABS: BASOPHILS % (AUTO) 0.4 % (0.0-2.0); EOSINOPHILS # (AUTO) 0.2 K/uL (0.0-0.4); EOSINOPHILS % (AUTO) 2.4 % (0.0-4.0); HEMATOCRIT 39.3 % (36-48); LYMPHOCYTES # (AUTO) 1.9 K/uL (1.0-5.5); LYMPHOCYTES % (AUTO) 20.4 % (20.5-51.5); MEAN CORPUSCULAR HEMOGLOBIN 29 pg (27-31); MEAN CORPUSCULAR HGB CONC 33 % (32-36); MEAN CORPUSCULAR VOLUME 88 fL (79.0-98.0); MONOCYTES # (AUTO) 1.1 K/uL (0.0-1.0); NEUTROPHILS # (AUTO) 6.2 K/uL (1.8-7.7); NEUTROPHILS % (AUTO) 64.8 % (40.0-70.0); PLATELET COUNT (AUTO) 240 K/uL (130-430); RED BLOOD CELL COUNT(AUTO) 4.46 MIL/uL (4.2-6.2); RED CELL DISTRIBUTION WIDTH 12.6 % (9.0-15.0); WHITE BLOOD COUNT (AUTO) 9.4 K/uL (4.8-10.8)
[2017-08-28 07:12] LABS: CALCIUM 9.7 mg/dL (8.4-11.0); CREATININE 0.59 mg/dL (0.55-1.30); POTASSIUM 3.3 mmol/L (3.5-5.1)
[2017-08-28 08:00] VITALS: BP_SYST 129
[2017-08-28] MEDS: MAGNESIUM CITRATE 300 ML ORAL SOLUTION PO SCH ×2 (09:00→09:23)
[2017-08-28] MEDS: DOCUSATE SODIUM 100 MG CAPSULE PO SCH (09:00)
[2017-08-28] MEDS: [UNRECOGNIZED DRUG - OTHER] PO SCH (09:00)
[2017-08-28] MEDS: TICAGRELOR PO SCH (09:00)
[2017-08-28] MEDS: POTASSIUM CHLORIDE 20 MEQ TAB.PRT.SR PO SCH (09:06)
[2017-08-28] MEDS: NACL 0.9% 1,000 ML IV SCH (09:07)
[2017-08-28] MEDS: levETIRAcetam 250 MG in NS 100 ML IV SCH (09:07)
[2017-08-28] MEDS: LACTULOSE 20 GM/30 ML UDC PO SCH ×2 (09:19→15:00)
[2017-08-28] MEDS: FUROSEMIDE 20 MG TABLET PO SCH (09:20)
[2017-08-28] MEDS: MULTIVITAMINS TAB 1 TABLET PO SCH (09:20)
[2017-08-28] MEDS: oxyCODONE HCL 10 MG TAB.ER.12H PO SCH ×2 (09:20→16:08)
[2017-08-28] MEDS: ASCORBIC ACID 500 MG TABLET PO SCH (09:21)
[2017-08-28] MEDS: LISINOPRIL 20 MG TABLET PO SCH (09:23)
[2017-08-28] MEDS: OMEPRAZOLE 20 MG CAPSULE.DR (PriLOSEC) PO SCH (09:23)
[2017-08-28] MEDS: METOPROLOL TARTRATE 25 MG TABLET PO SCH (09:23)
[2017-08-28] MEDS: HEPARIN SODIUM,PORCINE 5000 UNITS/ML VIAL SUBCUT SCH (09:38)
[2017-08-28] MEDS: LACOSAMIDE 100 MG TABLET PO SCH (09:38)
[2017-08-28] MEDS: cefTRIAXone 1 GM in D5W 50 ML IV SCH (11:09)
[2017-08-28] MEDS: FLUCONAZOLE 100 mg/ NS 50 ML IV SCH (11:53)
[2017-08-28] MEDS: INSULIN REGULAR, HUMAN 100 UNITS/ML, 10 ML VIAL (novoLIN R) SUBCUT PRN (12:18)
[2017-08-28 12:41] VITALS: BP_SYST 131
[2017-08-28 16:43] VITALS: BP_SYST 128
[2017-08-28 17:23] VITALS: BP_SYST 128
[2017-08-28] MEDS: CITALOPRAM HYDROBROMIDE 20 MG TABLET PO SCH (18:12)
[2017-08-28] MEDS ORDERED: DOCUSATE SODIUM 250 MG CAPSULE PO SCH (21:00)
[2017-08-29] MEDS ORDERED: POLYETHYLENE GLYCOL 3350, 17 GM/ POWD.PACK PO SCH (09:00)
== END 2017-08-28 17:40 | DRG 388 ==
LOC: SED 03:11 → STU 05:36 → SMU 08-25 22:24
PROVIDERS: ADMIT Family Medicine; ATTEND Family Medicine
DX: K56.41 Fecal impaction (principal); E11.10 Type 2 diabetes mellitus with ketoacidosis without coma; K31.84 Gastroparesis; I69.354 Hemiplegia and hemiparesis following cerebral infarction affecting left non-dominant side; E11.40 Type 2 diabetes mellitus with diabetic neuropathy, unspecified; B37.49 Other urogenital candidiasis; E78.5 Hyperlipidemia, unspecified; F41.1 Generalized anxiety disorder; G89.4 Chronic pain syndrome; I10 Essential (primary) hypertension; K21.9 Gastro-esophageal reflux disease without esophagitis; N28.9 Disorder of kidney and ureter, unspecified; E11.43 Type 2 diabetes mellitus with diabetic autonomic (poly)neuropathy; R26.81 Unsteadiness on feet; Z88.8 Allergy status to other drugs, medicaments and biological substances; Z88.2 Allergy status to sulfonamides; Z90.49 Acquired absence of other specified parts of digestive tract; Z79.1 Long term (current) use of non-steroidal anti-inflammatories (NSAID); Z79.899 Other long term (current) drug therapy
CPT/HCPCS: 36415; 73564; 74000-TC; 80048; 80053; 80061; 81000-TC; 82150-TC; 82962; 83036; 83690-TC; 83735-TC; 83880; 84100-TC; 84436; 84439; 84443-TC; 84479; 85025; 85610-TC; 85730-TC; 87081; 96365; 97110-GP; 97530-GP; 99285; J0360; J0696; J1170; J1450; J1644; J1815; J1953; J2060; J2270; J2405; J2765; J3490; J7030; J7060; Q9967